=== PATIENT | male | born 1955 | race Caucasian/White ===

== ENCOUNTER → 2016-10-21 | Day surgery (SDC) | payer MEDICARE, BC ==
[~2016-10-21] MED LIST: ALBUTEROL MININEB INH; ALBUTEROL20 ml INH; AZITHROMYCIN250 MG PO; CARBIDOPA-LEVO1 EAC1 PO; CARBIDOPA-LEVO1 EAC7; CLONAZEPAM0.5 MG PO; DILANTIN; DILANTIN PO; ETHAMBUTOL HCL100 MG PO; FLOMAX0.4 M1 PO; GLUMETZA500 MG/BOT PO; JANUVIA PO; KLONOPIN0.5 M3 PO; LEVAQUIN750 MG PO; METFORMIN HCL500 M4 PO; MIRAPEX ER3 MG PO; MIRAPEX1 MG PO; MIRTAZAPINE30 M1 PO; MYAMBUTOL400 M1 PO; OXYGEN; PAIN CREAM; PERCOCET 10/3251 TAB PO; PERFOROMIS20 MCG/2 M NEB; PREDNISONE PO; PROAIR HFA8.5 GM IH; PROTONIX PO; PROVENTIL0.83 MG/ML IH; REMERON30 MG PO; RIFAMPIN300 M1 PO; RIFAMPIN300 MG PO; SYMBICORT INH; THEOPHYLLIN PO; TOPROL XL100 MG PO; TUDORZA PRESS400 MCG INH; ZANTAC150 MG PO; ZITHROMAX500 MG PO; [UNRECOGNIZED DRUG - OTHER] PO
--- NOTE | ~2016-10-21 | OR ---
Unit #: [id number] #: [id number] Patient: ALDO CRUZ [id number] [address] [id number] MR#: [id number] NAME: ALDO CRUZ ROOM: Date of Procedure: 10/21/2016 Admission Date: 10/21/2016 Surgeon: Linwood Sosa M.D. : 1955 Attending Physician: Linwood Sosa M.D. Referring Physician: Linwood Sosa M.D. Primary Care Physician: Joel Stephens M.D. OPERATIVE REPORT PREOPERATIVE DIAGNOSES 1. Cervical herniated nucleus pulposus. 2. Spondylolisthesis. 3. Neck pain. 4. Cervical radiculopathy. SECONDARY DIAGNOSES 1. Low back pain. 2. Radiculopathy. 3. Spinal stenosis. 4. Spondylolisthesis. 5. Degenerative disk disease. POSTOPERATIVE DIAGNOSES 1. Low back pain. 2. Radiculopathy. 3. Spinal stenosis. 4. Spondylolisthesis. 5. Degenerative disk disease. PROCEDURE PERFORMED 1. Lumbar epidural steroid injection with intravenous sedation and fluoroscopic guidance for needle localization. 2. Lumbar epidural steroid injection with fluoroscopic guidance for needle localization. INDICATIONS FOR PROCEDURE The patient is a 61-year-old male with neck and bilateral upper extremity pain. He has a large left disk herniation causing severe bilateral neural foraminal stenosis at C4-C5, broad based stenosis at C5-C6, C7-T1, it was immobile at T4 and T5. The lumbar spine has multilevel degenerative change. There is a compression fracture at L2 with retropulsion. Grade 2 stable spondylolisthesis at the L5-S1 level causing severe spinal stenosis, degenerative disease throughout the lumbar spine. The patient has failed to settle conservative medical management. The plan is to give a trial of epidural steroids. Risks and benefits of all have been reviewed. DESCRIPTION OF PROCEDURE The patient was placed in a seated position. Standard monitors were applied. A 2 mg of Versed were given for sedation and anxiolysis, which Unit #: [id number] #: [id number] Patient: ALDO CRUZ were adequate. Vital signs remained stable. Sterile prep and drape then of the lumbar area was performed. The skin then at the L5 level was localized with 1% lidocaine. An 18-gauge Hustead needle was then advanced via loss of resistance technique and fluoroscopic guidance in toward the epidural space. After confirming proper positioning with fluoroscopy and radiographic contrast, 80 mg of Depo-Medrol and 4 mL of 0.125% bupivacaine were deposited. The patient tolerated this part of procedure well. Second procedure: Cervical epidural steroid injection with fluoroscopic guidance. A separate kit was used to sterilely prep and drape the patient's cervical spine. The skin then at the C5-C6 level was localized with 1% lidocaine. An 18-gauge Hustead needle was then advanced via hanging drop technique and fluoroscopic guidance in toward the epidural space. After confirming proper positioning with fluoroscopy and radiographic contrast, 80 mg of Depo-Medrol and 2 mL of 0.25% bupivacaine were deposited. The patient tolerated the procedure otherwise well and was discharged to the recovery room in stable condition. Dictated by... Maurisio Minaya/meme TD: 10/22/2016 05:27 JOB #: [id number] OPERATIVE REPORT Page 1 of 1 X Linwood Sosa MD X PROCEDURE OPERATIVE NOTE
== END | disposition home or self-care (01) ==
LOC: CCSC 08:07
DX: M50.10 Cervical disc disorder with radiculopathy, unspecified cervical region (principal); M99.71 Connective tissue and disc stenosis of intervertebral foramina of cervical region; M99.72 Connective tissue and disc stenosis of intervertebral foramina of thoracic region; M43.17 Spondylolisthesis, lumbosacral region; M51.16 Intervertebral disc disorders with radiculopathy, lumbar region; J44.9 Chronic obstructive pulmonary disease, unspecified; G20 Parkinson's disease; N40.0 Benign prostatic hyperplasia without lower urinary tract symptoms; Z88.0 Allergy status to penicillin; Z79.84 Long term (current) use of oral hypoglycemic drugs; Z79.899 Other long term (current) drug therapy
CPT/HCPCS: J1040; J2250